=== PATIENT | female | born 1950 | race Caucasian/White ===

== ENCOUNTER 2018-08-04 07:32 | Inpatient (IN) | END 2018-08-06 13:00 | disposition home or self-care (01) | DRG 470 ==

== ENCOUNTER 2019-04-14 09:57 | Emergency (ER) | payer MEDICARE, OTHER ==
[~2019-04-14] VITALS: Ht 154.9 cm; Wt 65.0 kg
[~2019-04-14 09:57] MED LIST: ACET-2047 PO; AMIT25TA9 PO; ASPI-817 PO; ATEN-51 PO; HYDR-3025 PO; HYDR25TA6 PO; RSV10T PO; ZOLM5TAB7 PO
[2019-04-14] MEDS ORDERED: ONDANSETRON 4 MG INJ IV STA (10:01)
[2019-04-14] MEDS ORDERED: SOD CHLORIDE 0.9% 1,000 ML IV STA (10:01)
[2019-04-14] MEDS ORDERED: morphine 4 MG/ML VIAL IV STA (10:01)
[2019-04-14 10:06] VITALS: Ht 154.9 cm; Wt 65.0 kg
[2019-04-14] MEDS ORDERED: SPIR25TA PO (11:03)
[2019-04-14] MEDS ORDERED: MULTI PO (11:03)
[2019-04-14] MEDS ORDERED: PROPOFOL 100 ML IV ONE (11:30)
[2019-04-14] MEDS ORDERED: FENTAnyl 50 MCG/ML VIAL IV ONE (11:30)
[2019-04-14] MEDS ORDERED: IBUP-1542 PO (12:21)
[2019-04-14 12:30] VITALS: BP 113/67; PULSE 72; RESP 18
--- NOTE | 2019-04-14 12:36 | ERD ---
ER Documentation Chief Complaint Chief Complaint LT HIP PAIN STRECHED WHILE WORKING OUT AT GYM H/O LT HIP REPLACEMENT HPI This is a 68-year-old woman brought in by EMS after mechanical fall toward her left side while on a treadmill at the gym. She is status post total left hip arthroplasty 6 months ago and after the fall she could not get up or walk. She denies head or neck injury, no loss of consciousness, no chest pain or shortness of breath. Patient was transported here by EMS without further complications ROS All systems reviewed and are negative except as per history of present illness. Medications Home Meds Active Scripts Ibuprofen* (Motrin*) 600 Mg Tab, 600 MG PO Q8 PRN for PAIN AND/OR INFLAMMATION, #30 TAB Prov:JUAN DAVID RAMIREZ MD 04/14/19 Reported Medications Multivitamins* (Theragran*) 1 Tab Tab, 1 TAB PO DAILY, TAB 04/14/19 Spironolactone* (Aldactone*) 25 Mg Tablet, 25 MG PO DAILY, #30 TAB 04/14/19 Zolmitriptan (Zomig) 5 Mg Tab, 5 MG PO BID PRN for MIGRAINE, TAB may repeat after 2 hours, MAX 5 mg/single dose; MAX 10 mg/24 hours 08/04/18 Acetaminophen* (Acetaminophen*) 650 Mg Tablet, 650 MG PO QHS PRN for PAIN AND OR ELEVATED TEMP, #30 TAB 08/02/18 Hydrochlorothiazide* (Hydrochlorothiazide*) 25 Mg Tab, 25 MG PO EVERY OTHER DAY, #30 TAB 08/02/18 Amitriptyline Hcl* (Amitriptyline Hcl*) 25 Mg Tablet, 12.5 MG PO EVERY OTHER HS, #30 TAB 08/02/18 Rosuvastatin Calcium* (Crestor*) 10 Mg Tablet, 10 MG PO QHS, #30 TAB 08/02/18 Atenolol* (Atenolol*) 25 Mg Tablet, 25 MG PO BID, #60 TAB 08/02/18 Aspirin* (Aspirin* EC) 81 Mg Tablet.dr, 81 MG PO DAILY, TAB 08/02/18 Discontinued Reported Medications Hydrocodone Bit-Acetaminophen* (Vicodin* ES) 7.5-300 Mg Tablet, 0.5 TAB PO BID PRN for PAIN, TAB 08/02/18 Allergies Allergies: Coded Allergies: adhesive tape (Verified Allergy, Unknown, 04/14/19) codeine (Verified Allergy, Unknown, UPSET STOMACH/NAUSEA, 04/14/19) SEVERE RASH PER DUTCH AT MD OFFICE PMhx/Soc Hypertension, dyslipidemia, left total hip arthroplasty History of Surgery: Yes (RT KNEE, OVARIAN CYSTECTOMY,CHOLECYSTECTOMY, LT HIP ) Anesthesia Reaction: Yes (N/V) Hx Neurological Disorder: No Hx Respiratory Disorders: No Hx Cardiac Disorders: Yes (HTN,HLD) Hx Psychiatric Problems: No Hx Miscellaneous Medical Probl: No Hx Alcohol Use: No Hx Substance Use: No Hx Tobacco Use: No Smoking Status: Never smoker FmHx Family History: No diabetes Physical Exam Vitals Vital Signs Date Temp Pulse Resp B/P (MAP) Pulse Ox O2 O2 Flow FiO2 Time Delivery Rate 04/14/19 67 18 114/62 100 Room Air 12:00 (79) 04/14/19 2.0 11:11 04/14/19 98.1 83 16 131/67 98 10:06 (88) Physical Exam GENERAL: Well-developed, well-nourished, well-hydrated, in no apparent distress, looks nontoxic in appearance HEENT: Moist mucous membranes, pink conjunctiva, no cervical spine tenderness or step-off deformities, no goiter, no jaundice or icterus, extraocular movements intact without pain. No submandibular induration, and no pharyngeal erythema NEURO: Alert and oriented 3, cranial nerves II through XII intact bilaterally, pupils equal round reactive to light, no focal deficits or facial asymmetry, sensation intact distally Strength 5/5 in upper and lower extremities bilaterally CARDIAC: Regular rate and rhythm, no murmurs rubs or gallops LUNGS: Clear bilaterally no wheezing crackles or stridor ABDOMEN: Soft nontender, no guarding, no rigidity, no rebound, no psoas sign no obturator sign. Normoactive bowel sounds SKIN: Warm and dry to touch, no abrasions, contusions, or hematomas, no lacerations, no ecchymosis, no target lesions, and without ulcers EXTREMITIES: No clubbing cyanosis or edema, calves are bilaterally symmetrical, no Homans sign, no popliteal cord sign. Distal pulses equal and bilateral PSYCH: Normal affect without agitation or irritability Result Diagram: 04/14/19 1021 04/14/19 1021 Results 24 hrs Laboratory Tests Test 04/14/19 10:21 White Blood Count 5.0 10^3/ul Red Blood Count 4.66 10^6/ul Hemoglobin 14.4 g/dl Hematocrit 42.7 % Mean Corpuscular Volume 91.6 fl Mean Corpuscular Hemoglobin 30.9 pg Mean Corpuscular Hemoglobin Concent 33.7 g/dl Red Cell Distribution Width 12.5 % Platelet Count 234 10^3/UL Mean Platelet Volume 10.4 fl Immature Granulocytes % 0.200 % Neutrophils % 52.2 % Lymphocytes % 31.9 % Monocytes % 11.9 % Eosinophils % 3.0 % Basophils % 0.8 % Nucleated Red Blood Cells % 0.0 /100WBC Immature Granulocytes # 0.010 10^3/ul Neutrophils # 2.6 10^3/ul Lymphocytes # 1.6 10^3/ul Monocytes # 0.6 10^3/ul Eosinophils # 0.2 10^3/ul Basophils # 0.0 10^3/ul Nucleated Red Blood Cells # 0.0 10^3/ul Sodium Level 143 mmol/L Potassium Level 4.5 mmol/L Chloride Level 103 mmol/L Carbon Dioxide Level 30 mmol/L Anion Gap 10 Blood Urea Nitrogen 26 mg/dl Creatinine 0.94 mg/dl Est Glomerular Filtrat Rate mL/min 60 mL/min Glucose Level 147 mg/dl Calcium Level 10.1 mg/dl Current Medications Medications Dose Sig/Margaret Start Time Status Last (Trade) Ordered Route PRN Stop Time Admin Dose Reason Admin Sodium 1,000 ml @ Q1H STAT 04/14/19 DC 04/14/19 Chloride 1,000 mls/hr IV 10:01 10:23 04/14/19 11:00 Morphine 4 mg ONCE STAT 04/14/19 DC 04/14/19 Sulfate IV 10:01 10:23 (morphine) 04/14/19 10:03 Ondansetron 4 mg ONCE STAT 04/14/19 DC 04/14/19 HCl (Zofran IV 10:01 10:23 Inj) 04/14/19 10:03 Fentanyl 100 mcg ONCE ONCE 04/14/19 DC 04/14/19 (Sublimaze) IV 11:30 11:20 04/14/19 11:31 Propofol 100 ml @ 0 TITRATE 04/14/19 DC 04/14/19 mls/hr ONCE IV 11:30 11:20 04/14/19 11:31 Procedures/MDM IV line was established patient was placed on physical therapy aid rhythm strip revealed a sinus rhythm at about 80 bpm with upright P and T waves. Patient was afebrile I administered 1 L normal saline IV, morphine 4 mg IV, Zofran 4 mg IV. X-ray left hip 2V Interpreted by me: Bones: No fracture Joints: Complete dislocation of the prosthetic femoral head from the cup Foreign body: Arthroplastic hardware Procedural Sedation: Pre-assessment performed. See preceding complete history and physical for details. Time out performed. See the written sedation documentation for details. Risk, benefits and alternatives were discussed with the patient. Patient agreed to this conscious sedation. ASA Class: I Mallampati Score: Class 3 Medication(s): Fentanyl 50 mcg and propofol 100 mg IV Complications: No hypoxic or apneic events Recovered without incident. A minimum of 21 minutes of face to face time was performed including preparation, sedation and recovery time. After analgesia and sedation no I provided flexion at the left hip and longitudinal traction and there was good palpable reduction of the left hip joint. Patient woke up shortly after sedation and had no complaints of left hip pain or difficulty moving left hip joint X-ray Pelvis 1V Interpreted by me: Bones: No fracture Joints: No dislocation Foreign body: Prosthetic left hip with no dislocation I spoke to the patient's primary orthopedic surgeon regarding the patient's presentation and symptomatology, he did review x-rays and recommended follow-up in his office early next week. Instructions were provided to the patient. Differential diagnoses considered, included but not limited to acute coronary syndrome, pulmonary embolism, aortic dissection, abdominal aortic aneurysm, sepsis, stroke, meningitis, encephalitis, pneumonia, appendicitis, jennifer cystitis, bowel obstruction, pyelonephritis, nephrolithiasis, cystitis, as well as metabolic, hematologic, and electrolyte abnormalities. As well as abscess, cellulitis, fractures, and dislocations. Patient feels much better at this time, and vital signs are normal, symptoms have improved. I did give strict instructions to return to the ED if symptoms continue or worsen, patient will otherwise follow-up with primary care physician. Patient understood instructions and agreed to plan. Disclaimer: Inadvertent spelling and grammatical errors are likely due to EHR/dictation software use and do not reflect on the overall quality of patient care. Also, please note that the electronic time recorded on this note does not necessarily reflect the actual time of the patient encounter. Departure Diagnosis: Primary Impression: Hip dislocation, left Encounter type: initial encounter Qualified Codes: S73.005A - Unspecified dislocation of left hip, initial encounter Additional Impression: S/P closed reduction of dislocated total hip prosthesis Condition: Good Patient Instructions: Hip Dislocation, Traumatic, (Reduced) JUAN DAVID RAMIREZ MD Apr 14, 2019 12:36
== END 2019-04-14 12:30 | disposition home or self-care (01) ==
LOC: E/R 09:57
DX: S73.005A Unspecified dislocation of left hip, initial encounter (principal); T84.021A Dislocation of internal left hip prosthesis, initial encounter; I10 Essential (primary) hypertension; W18.39XA Other fall on same level, initial encounter; Y79.2 Prosthetic and other implants, materials and accessory orthopedic devices associated with adverse incidents; Y92.89 Other specified places as the place of occurrence of the external cause; Z79.82 Long term (current) use of aspirin
CPT/HCPCS: 27265; 36415; 72170; 73510; 80048; 85025; 94770; 96374; 96375; 99285; J2270; J2405; J3010; J7030